=== PATIENT | male | born 2000 | race Caucasian/White ===

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

== ENCOUNTER 2022-08-12 22:53 | Inpatient (IN) | payer MEDICAID, OTHER ==
[~2022-08-12] VITALS: Ht 182.9 cm; Wt 118.9 kg
[2022-08-12 23:30] VITALS: BP 119/65
--- NOTE | 2022-08-12 23:40 | NUR ---
RT by bedside, ERMD by bedside
--- NOTE | 2022-08-12 23:44 | NUR ---
PT WHEELCHAIR ASSISTED TO ER BED 01.
[2022-08-12] MEDS ORDERED: NACL 0.9% 1,000 ML IV ONE (23:45)
[2022-08-12] MEDS ORDERED: PANTOPRAZOLE 40 MG INJ VIAL IVP ONE (23:45)
[2022-08-12] MEDS ORDERED: ONDANSETRON 4 MG/2 ML VIAL IVP ONE (23:55)
[2022-08-12] MEDS ORDERED: OCTREOTIDE ACETATE 100 MCG/ML VIAL IV STA (23:58)
[2022-08-13] VITALS (16 sets, daily range): BP systolic 102–137; BP diastolic 54–93
[2022-08-13] MEDS ORDERED: OCTREOTIDE ACETATE 1.25 MG in NACL 0.9% 250 ML IV SCH ×2
[2022-08-13] MEDS ORDERED: BUPRENORPHINE 0.3 MG/ML VIAL IV ONE
[2022-08-13] MEDS ORDERED: buprenorphine HCL 2 MG sublingual tab SL ONE
[2022-08-13] MEDS ORDERED: FUROSEMIDE 20 MG/2 ML VIAL IVP ONE (00:10)
[2022-08-13 00:22] LABS: BASOPHILS # (AUTO) 0.1 K/uL (0.00-0.22); BASOPHILS % (AUTO) 0.3 % (0.0-2.0); EOSINOPHILS # (AUTO) 0.4 K/uL (0-0.4); EOSINOPHILS % (AUTO) 1.1 % (0.0-4.0); HEMATOCRIT 44.7 % (36-52); HEMOGLOBIN 14.7 g/dL (12.0-18.0); LYMPHOCYTES # (AUTO) 3.3 K/uL (2.0-11.5); LYMPHOCYTES % (AUTO) 10.2 % (20.5-51.1); MEAN CORPUSCULAR HEMOGLOBIN 28 pg (27-31); MEAN CORPUSCULAR HGB CONC 33 g/dL (33-37); MEAN CORPUSCULAR VOLUME 84.4 fL (80-94); MONOCYTES % (AUTO) 2.9 % (1.7-9.3); NEUTROPHILS # (AUTO) 27.7 K/uL (1.8-7.7); NEUTROPHILS % (AUTO) 85.5 % (42.2-75.2); PLATELET COUNT (AUTO) 377 K/uL (140-450); RED CELL DISTRIBUTION WIDTH 13.6 % (11.6-13.7)
[2022-08-13 00:29] LABS: PROTHROMBIN TIME 11.1 secs (10.8-13.4)
[2022-08-13 00:30] LABS: ANION GAP 14.7 (8-16); ASPARTATE AMINOTRANSFERASE 27 U/L (15-37); CARBON DIOXIDE 25.5 mmol/L (21-32); CHLORIDE 103 mmol/L (98-107); CREATININE 1.3 mg/dL (0.6-1.3); GFR ARICAN-AMERICAN 90 mL/min (>90); GLUCOSE 169 mg/dL (74-106); LIPASE 113 U/L (73-393); POTASSIUM 3.2 mmol/L (3.5-5.1); SODIUM SERUM 140 mmol/L (136-145); TOTAL BILIRUBIN 0.4 mg/dL (0.0-1.0); UREA NITROGEN, BLOOD 25 mg/dL (7-18)
[2022-08-13] MEDS ORDERED: OCTREOTIDE ACETATE 1000 MCG/5 ML VIAL ONE (00:44)
--- NOTE | 2022-08-13 00:45 | NUR ---
RECEIVED REPORT FROM DAY SHIFT NURSE FOR CONTINUITY OF CARE. PT STABLE AT THIS TIME, ALERT AND ORIENTED X4. RUNNING ON HIFLOW 15% FIO2 35%. WILL MAKE FREQUENT ROUNDS THROUGHOUT SHIFT.
[2022-08-13 00:46] LABS: WHITE BLOOD COUNT (AUTO) 32.4 K/uL (4.8-10.8)
[2022-08-13] MEDS ORDERED: PIPERACILLIN/TAZOBACTAM 3.375 GM in DEXTROSE 5% 50 ML IV ONE (01:10)
--- NOTE | 2022-08-13 01:10 | NUR ---
ATTEMPTED TO DRAW ABG FROM PT PER ER MD ORDER, PT REFUSED. RISK AND BENEFIT EXPLAINED TO PT.
[2022-08-13] MEDS ORDERED: MORPHINE SULFATE 2 MG/ML SYR IVP STA (01:12)
[2022-08-13] MEDS ORDERED: KCL 20 MEQ IN 100 mL PREMIX 100 ML IV ONE (01:15)
[2022-08-13] MEDS ORDERED: cefTRIAXone 1,000 MG VIAL ONE (01:21)
--- NOTE | 2022-08-13 01:22 | NUR ---
NASAL SWAB FOR JEFFRY, SENT TO LAB
[2022-08-13 01:49] LABS: BARBITURATE, URINE NEGATIVE ng/ml (NEG <=200); BENZODIAZEPINE, URINE NEGATIVE ng/mL (NEG <=200); CANNABINOID, URINE POSITIVE ng/mL (NEG <=50); COCAINE, URINE NEGATIVE ng/mL (NEG <=300); OPIATE, URINE NEGATIVE ng/mL (NEG <=2000); PHENCYCLIDINE SCREEN,URINE NEGATIVE ng/mL (NEG <=25)
--- NOTE | 2022-08-13 03:13 | NUR ---
Report given Ivett FARMER for transfer of care
--- NOTE | 2022-08-13 03:20 | NUR ---
TELEPHONE REPORT RECEIVED FROM EILEEN Alvares RN (ER) PATIENT WILL BE ADMITTED FOR MANAGMENT OF HYPOXIC RESPIRATORY FAILURE AND FENTANYL OVERDOSE. PATIENT IS A&O x4. WILL TRANSFER FROM ER WITHIN 20+ MINUTES
--- NOTE | 2022-08-13 03:50 | NUR ---
TRANSFER OF CARE FROM ER. NEW ADMIT. REPORT RECEIVED FROM EILEEN Alvares RN. PATIENT ARRIVED VIA GURNEY AND WAS ABLE TO AMBULATE FROM ER [place] TO ICU BED 6. PATIENT IS CURRENTLY ON HIGH FLOW OXYGEN AT 25L/M WITH FIO2 = 60%. HAS 20G IN THE LEFT AC. PATIENT IS ALERT, AWAKE, AND ORIENTED. ABLE TO MAKE ALL NEEDS KNOWN. SKIN IS INTACT. WILL CONTINUE TO MONITOR PATIENT FOR ANY CHANGES IN CONDITION .
[2022-08-13] MEDS ORDERED: PIPERACILLIN/TAZOBACTAM 3.375 GM VIAL IV ONE (04:25)
--- NOTE | 2022-08-13 06:15 | NUR ---
PHONE CALL RECEIVED FROM PATIENT'S MOTHER TO CHECK PATIENT'S CURRENT CONDITION. PROVIDED UPDATE AND INFORMED MOTHER THAT PATIENT IS ASKING HER TO BRING A CELL PHONE GUITAR INSTRUCTOR. PROVIDER HOURS FOR VISITING, AND REQUIREMENT TO WEAR A MASK
--- NOTE | 2022-08-13 07:24 | NUR ---
TRANSFER OF CARE TO DAY SHIFT, REPORT ENDORSED TO GUANAKITO
--- NOTE | 2022-08-13 07:30 | NUR ---
RECEIVED PT IN BED S/P FENTANYL OD. ON HIGH FLOW 25L 60% SATURATION 94-95%. SPEAKING IN FULL SENTENCES. VOMITING COFFEE GROUND EMESIS. PAGED DR GANDHI TO MAKE AWARE AND FOR ADMITTING ORDERS. STACH ON MONITOR. SAFETY MAINTAINED.
[2022-08-13] MEDS ORDERED: IPRATROPIUM 0.02% 0.5 MG/2.5 ML NEBU INH PRN (08:25)
[2022-08-13] MEDS ORDERED: HYDROcodone/APAP 7.5/325 MG 1 TAB PO PRN (08:25)
[2022-08-13] MEDS ORDERED: DOCUSATE SODIUM 100 MG GELCAP PO PRN (08:25)
[2022-08-13] MEDS ORDERED: ACETAMINOPHEN 325 MG TAB PO PRN (08:25)
[2022-08-13] MEDS ORDERED: PIPERACILLIN/TAZOBACTAM 3.375 GM in DEXTROSE 5% 50 ML IV SCH (08:30)
[2022-08-13] MEDS: NACL 0.9% 1,000 ML IV SCH (08:42)
[2022-08-13] MEDS: ONDANSETRON 4 MG/2 ML VIAL IM/IVP PRN ×2 (08:42→13:58)
[2022-08-13] MEDS: PANTOPRAZOLE 40 MG TABEC PO SCH (08:44)
--- NOTE | 2022-08-13 08:52 | NUR ---
RECEIVED PT ON HFNC 25L,60%,37 DEGREES. PT SATURATION 97%. PT STATES STILL NAUSEOUS, BUT IMPROVING.
[2022-08-13 09:02] LABS: CHOL/HDL RATIO 2.6 (1-4.5); FREE T4 (FREE THYROXINE) 1.41 ng/dL (0.76-1.46); MAGNESIUM 1.7 mg/dL (1.8-2.4); PHOSPHORUS 4.3 mg/dL (2.5-4.9); THYROID STIMULATING HORMONE 4.64 uIU/mL (0.34-3.74)
--- NOTE | 2022-08-13 09:16 | NUR ---
DR GANDHI STATES IF PT CONTINUE TO IMPROVE POSSIBLE DOWNGRADE TONIGHT FOR TELEMETRY
--- NOTE | 2022-08-13 09:16 | NUR ---
DR GANDHI AT BEDSIDE FOR ASSESSMENT.
[2022-08-13] MEDS ORDERED: FUROSEMIDE 20 MG/2 ML VIAL IVP SCH (09:51)
--- NOTE | 2022-08-13 10:47 | NUR ---
PATIENT HAS BEEN SCREENED AND CATEGORIZED MODERATE NUTRITION RISK. PATIENT WILL BE SEEN WITHIN 3-5 DA[address] OF ADMISSION. [address]DS [address]
--- NOTE | 2022-08-13 11:30 | NUR ---
LASIX GIVEN ORDERED.
[2022-08-13] MEDS: PIPERACILLIN/TAZOBACTAM 3.375 GM in DEXTROSE 5% 50 ML IV SCH ×3 (11:31→23:23)
[2022-08-13] MEDS: IPRATROPIUM 0.02% 0.5 MG/2.5 ML NEBU INH SCH ×2 (13:00→19:34)
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
--- NOTE | 2022-08-13 14:00 | NUR ---
CT ANGIOGRAM ORDER BY DR. GANDHI. BUT PT REFUSED TO HAVE IT DONE WILL NOT SIGN THE CONSENT.
--- NOTE | 2022-08-13 15:20 | NUR ---
1330 vomitting greenish CONTENT NO BLOOD IN IT. ZOFRAN GIVEN ORDERED.
--- NOTE | 2022-08-13 19:00 | NUR ---
PT STATE THAT HE FELT BETTER HE CAN BREATH ROSA V/S WITH IN NORMAL LIMIT.
--- NOTE | 2022-08-13 19:26 | NUR ---
REPORT GIVE TO NEW FARMER.
--- NOTE | 2022-08-13 20:00 | NUR ---
RECEIVED PATIENT AWAKE,ALERT AND ORIENTED.AFEBRILE.DENIES ANY PAIN AND DISCOMFORT.SR ON THE MONITOR ,NO ECTOPY.BP STABLE AT 133/73.ON HI FLOW WITH 15L AND 40% FIO2 WITH O2 SAT AT 92%.ABDOMEN ROUND SOFT AND NON TENDER WITH + BSX4 QUADS ALL PULSES PRESENT AND PALPABLE.NO EDEMA NOTED ON ALL EXTEREMITIES. IV ON LEFT AC PATENT AND INATACT.WILL CONTINUE TO MONITOR .
[2022-08-13] MEDS: guaiFENesin DM 200/20 MG-10 ML 10 ML UDC PO PRN (20:28)
[2022-08-13] MEDS: ZOLPIDEM 5 MG TAB PO PRN (21:24)
--- NOTE | 2022-08-13 21:43 | NUR ---
2140 LOWERED FIO2 TO 40%. SATS 96%
--- NOTE | 2022-08-14 00:20 | NUR ---
TRANSFER PATIENT TO TELEMETRY ,AND REPORT GIVEN TO GROUP TEACHER.
[2022-08-14] MEDS: IPRATROPIUM 0.02% 0.5 MG/2.5 ML NEBU INH SCH ×3 (00:41→20:17)
--- NOTE | 2022-08-14 01:00 | NUR ---
PT TITRATED DOWN TO 4L NASAL CANULA. CURRENTLY SATING AT 95%. WILL CONTINUE TO MONITOR.
[2022-08-14] MEDS: NACL 0.9% 1,000 ML IV SCH ×2 (01:05→17:17)
--- NOTE | 2022-08-14 01:29 | NUR ---
0041 TRANSFERRED PATIENT TO 110B. PLACED PATIENT ON 4LNC WITH HUMIDIFICATION.GAVE HHNTX. HIFLOW IS STANDBY IN HIS ROOM IF HE NEEDS TO GO BACK ON HIFLOW
[2022-08-14 04:00] VITALS: BP 91/48
[2022-08-14] MEDS: PIPERACILLIN/TAZOBACTAM 3.375 GM in DEXTROSE 5% 50 ML IV SCH ×4 (05:49→23:51)
--- NOTE | 2022-08-14 06:31 | NUR ---
PT STABLE AT THIS TIME, WILL ENDORSE TO DAY SHIFT NURSE. REFUSED MORNING LABS
--- NOTE | 2022-08-14 07:15 | NUR ---
PT SLEEPING. WILL GO BACK FOR BREATHING TREATMENT. SATURATION 95%. EQUAL CHEST RISE, NO DISTRESS NOTED.
[2022-08-14 08:08] LABS: T4 (THYROXINE) 7.8 ug/dL (4.5-12.0)
[2022-08-14] MEDS: PANTOPRAZOLE 40 MG TABEC PO SCH (08:29)
[2022-08-14] MEDS: POTASSIUM CHLORIDE 10 MEQ TABER PO PRN (08:29)
[2022-08-14] MEDS: ONDANSETRON 4 MG/2 ML VIAL IM/IVP PRN ×3 (08:29→19:45)
--- NOTE | 2022-08-14 09:07 | NUR ---
NURSES NOTE PATIENT RECEIVED AT BED SIDE A/OX4 , VSS , SINUS RHYTHM ON MONITOR , WEAKNESS , ON IV FLUID 60CC/H SKIN INTACT , COMPLAIN OF NAUSEA, MEDS GIVEN , POTASSIUM LOW REPLACE IT WITH 40 LALIT PO K PATIENT CONTINENT X2 , STILL UNDER OBSERVE .
[2022-08-14 09:13] VITALS: BP 122/75
[2022-08-14 10:35] LABS: ANION GAP 9.4 (8-16); CARBON DIOXIDE 27.4 mmol/L (21-32); CREATININE 0.8 mg/dL (0.6-1.3); POTASSIUM 3.8 mmol/L (3.5-5.1)
[2022-08-14 11:04] LABS: WHITE BLOOD COUNT (AUTO) 20.4 K/uL (4.8-10.8)
[2022-08-14 11:05] LABS: MEAN CORPUSCULAR HEMOGLOBIN 28 pg (27-31); MEAN CORPUSCULAR HGB CONC 33 g/dL (33-37); PLATELET COUNT (AUTO) 237 K/uL (140-450); RED BLOOD CELL COUNT(AUTO) 4.24 MIL/uL (4.20-6.10); RED CELL DISTRIBUTION WIDTH 13.5 % (11.6-13.7)
[2022-08-14 11:14] LABS: EOSINOPHILS % (MANUAL) 2 % (0-4); LYMPHOCYTES % (MANUAL) 13 % (20-46); MONOCYTES % (MANUAL) 3 % (5-12)
[2022-08-14 12:09] VITALS: BP 120/67
--- NOTE | 2022-08-14 13:12 | NUR ---
NURSES NOTE PATIENT A/OX4 , VSS , SINUS RHYTHM ON MONITOR , ON NASAL CANNULA 3 LITER NOW HE COMPLAIN OF NAUSEA ZOFRAN IV GIVEN , STILL ON IV FLUID 60CC/H STILL UNDER OBSERVE .
--- NOTE | 2022-08-14 14:32 | NUR ---
TITRATED PT DOWN FROM 4L NASAL CANNULA TO 2L NASAL CANNULA. SATURATION 95%
[2022-08-14] MEDS: ZOLPIDEM 5 MG TAB PO PRN (14:37)
--- NOTE | 2022-08-14 16:05 | NUR ---
NURSES NOTE PATIENT A/OX4 , VSS , ON NASAL CANNULA 2 LITER O2 , SINUS RHYTHM TO TACHY ON MONITOR , AMBULATORY , CONTINENT X2 SKIN INTACT , ON REGULAR DIET , STILL HAS NAUSEA, ZOFRAN IV GIVEN , ON IV FLUID N/S 0.9% 85CC/H STILL UNDER OBSERVE .
[2022-08-14 16:52] VITALS: BP 121/72
--- NOTE | 2022-08-14 18:02 | NUR ---
NURSES NOTE O2 TURN OFF HIS O2 SUT93% ON ROOM AIR , STILL PATIENT UNDER OBSERVE .
--- NOTE | 2022-08-14 19:07 | NUR ---
JESSICAE REPORT GIVEN TO ANAT FARMER ALL HER QUESTION ANSWER .
[2022-08-14 20:00] VITALS: BP 129/73
[2022-08-14] MEDS ORDERED: MELATONIN 3 MG TAB PO PRN (20:05)
[2022-08-15] VITALS: BP 122/70
[2022-08-15] MEDS: IPRATROPIUM 0.02% 0.5 MG/2.5 ML NEBU INH SCH ×2 (01:00→08:39)
[2022-08-15] MEDS: guaiFENesin DM 200/20 MG-10 ML 10 ML UDC PO PRN (03:08)
--- NOTE | 2022-08-15 03:47 | NUR ---
PATIENT'S IV CAME OUT. ATTEMPTED TO RESTART IV, PATIENT REFUSING NEW IV START. PATIENT STATES HE IS AFRAID OF NEEDLES AND DOES NOT WANT A NEW IV. ELGIN CHARGE NURSE NOTIFIED AND DR. CALL CALLED TO BE NOTIFIED. WILL CONTINUE TO MONITOR FOR SAFETY. Jennifer STEPHENSON RN.
[2022-08-15 04:00] VITALS: BP 130/67
[2022-08-15] MEDS: PIPERACILLIN/TAZOBACTAM 3.375 GM in DEXTROSE 5% 50 ML IV SCH ×2 (06:00→11:06)
--- NOTE | 2022-08-15 06:05 | NUR ---
PATIENT STILL DOES NOT WANT IV PLACED. UNABLE TO ADMINISTER IV ANTIBIOTICS DUE TO PATIENT NOT HAVING IV ACCESS. EXPLAINED TO PATIENT THE IMPORTANCE AND NEED FOR IV ACCESS AND PATIENT STATES HE DOES NOT WANT IT. NO RETURN CALL FROM DR. CALL TO INFORM HIM YET. WILL ENDORSE TO DAY SHIFT NURSE. Jennifer STEPHENSON RN.
[2022-08-15 06:51] LABS: ANION GAP 13.6 (8-16); CARBON DIOXIDE 25.9 mmol/L (21-32); CREATININE 0.8 mg/dL (0.6-1.3); POTASSIUM 3.5 mmol/L (3.5-5.1)
[2022-08-15 06:55] LABS: BASOPHILS # (AUTO) 0.1 K/uL (0.00-0.22); BASOPHILS % (AUTO) 0.5 % (0.0-2.0); EOSINOPHILS % (AUTO) 5.9 % (0.0-4.0); HEMATOCRIT 33.1 % (36-52); HEMOGLOBIN 11.3 g/dL (12.0-18.0); LYMPHOCYTES # (AUTO) 1.6 K/uL (2.0-11.5); LYMPHOCYTES % (AUTO) 9.5 % (20.5-51.1); MEAN CORPUSCULAR HEMOGLOBIN 28 pg (27-31); MEAN CORPUSCULAR HGB CONC 34 g/dL (33-37); MEAN CORPUSCULAR VOLUME 82.3 fL (80-94); MONOCYTES % (AUTO) 5.6 % (1.7-9.3); NEUTROPHILS # (AUTO) 13.7 K/uL (1.8-7.7); NEUTROPHILS % (AUTO) 78.5 % (42.2-75.2); PLATELET COUNT (AUTO) 260 K/uL (140-450); RED BLOOD CELL COUNT(AUTO) 4.02 MIL/uL (4.20-6.10); RED CELL DISTRIBUTION WIDTH 13.1 % (11.6-13.7); WHITE BLOOD COUNT (AUTO) 17.4 K/uL (4.8-10.8)
--- NOTE | 2022-08-15 07:38 | NUR ---
NURSES NOTE PATIENT RECEIVED AT BED SIDE A/OX4 , VSS , SINUS RHYTHM ON MONITOR , WEAKNESS , NO IV ACCESS PATIENT REFUSED IV , AND HE PULL HIS IV , SAFETY PROACTION ON PLACE , SIDE RAILS UP X3 , BED IN LOWER POSITION , CALL LIGHT WITHIN REACH SKIN INTACT , AMBULATORY , OFF O2 SINCE YESTERDAY AFTERNOON , HIS O2 SAT GOOD PATIENT CONTINENT X2 , STILL UNDER OBSERVE .
[2022-08-15] MEDS: PANTOPRAZOLE 40 MG TABEC PO SCH (08:10)
[2022-08-15] MEDS: NACL 0.9% 1,000 ML IV SCH (08:10)
[2022-08-15 09:38] VITALS: BP 125/77
[2022-08-15] MEDS: POTASSIUM CHLORIDE 10 MEQ TABER PO PRN (11:03)
--- NOTE | 2022-08-15 11:23 | NUR ---
nurses note patient keep refusing iv insertion , and wants to go home we explain for him he need iv , but patient insisted refused iv .
--- NOTE | 2022-08-15 12:41 | NUR ---
COMMUNICATION I SPOOK WITH PULMONARY DR PITTS TO GET DISCHARGE ORDER FOR PATIENT SHE SAID LET HIM WALK AROUND FOR 10 MINTS IF HIS O2 LILIANA ABOVE 89 HE CAN GO HOME , THEN AFTER HE WALK HIS O2 SATE ABOVE 89 WE PAGE HER AGAIN SHE SAID OK TO DISCHARGE PATIENT THER DR CALL INFORMED TO PUT DC ORDER .
[2022-08-15 12:55] VITALS: BP 127/80
[2022-08-15 13:38] VITALS: BP 116/60
--- NOTE | 2022-08-15 14:00 | NUR ---
PT MOTHER CALLED REGARDING UPDATE ON PT'S DISCHARGE. PAGED DR. CALL.
--- NOTE | 2022-08-15 14:05 | NUR ---
DR. CALL CALLED AND FINALIZED MED REC. PRIMARY RN MOSIÉS ON LUNCH.
--- NOTE | 2022-08-15 14:15 | NUR ---
REVIEWED AND DISCUSSED PT DISCHARGE PAPERWORK. PT VERBALIZED UNDERSTANDING AND SIGNED ALL PAPERWORK. WAITING FOR MOTHER FOR TRANSPORTATION HOME.
== END 2022-08-15 14:20 | disposition home or self-care (01) | DRG 720 ==
LOC: MED 22:53 → MMU 08-13 02:43 → MIC 08-13 02:52 → MTU 08-14 00:29
PROVIDERS: ADMIT Family Medicine; ATTEND Family Medicine
PROC: 5A09357 Assistance with Respiratory Ventilation, Less than 24 Consecutive Hours, Continuous Positive Airway Pressure (ICD-10-PCS; principal; 2022-08-13)
PROC: 5A0935A Assistance with Respiratory Ventilation, Less than 24 Consecutive Hours, High Flow/Velocity Cannula (ICD-10-PCS; 2022-08-13)
DX: A41.9 Sepsis, unspecified organism (principal); J80 Acute respiratory distress syndrome; J69.0 Pneumonitis due to inhalation of food and vomit; G92.9 Unspecified toxic encephalopathy; T40.411A Poisoning by fentanyl or fentanyl analogs, accidental (unintentional), initial encounter; R04.2 Hemoptysis; J45.909 Unspecified asthma, uncomplicated; Z20.822 Contact with and (suspected) exposure to COVID-19; D72.829 Elevated white blood cell count, unspecified; E87.6 Hypokalemia; R73.9 Hyperglycemia, unspecified; F12.10 Cannabis abuse, uncomplicated; Z79.899 Other long term (current) drug therapy; Y92.89 Other specified places as the place of occurrence of the external cause
CPT/HCPCS: 36415; 71045; 80048; 80053; 80305; 82150; 83036; 83690; 83735; 83880; 84100; 84436; 84439; 84443; 84479; 84484; 85025; 85610; 85730; 86886; 86900; 86901; 87081; 93005; 94640; 96365; 96367; 96375; 99291; C9113; G0482; J0592; J0696; J1940; J2270; J2354; J2405; J2543; J3480; J7060; J7644; Q0092